=== PATIENT | male | born 1950 | race Caucasian/White ===

== ENCOUNTER → 2023-03-10 | Day surgery (SDC) | payer MEDICARE, BC, OTHER ==
[~2023-03-10] VITALS: Ht 185.4 cm; Wt 109.8 kg
[~2023-03-10] MED LIST: ALBU8.5H INH; ALEV220T22 PO; ASPI81CH33 PO; BSS IRR 500ML/OMIDRIA 4ML IRR BAG (OR ONLY) As Ordered ONE; CEFUROXIME 1MG/0.1ML INTRACAMERAL INJ As Ordered ONE; CYCLOPENTOLATE 1% OPHTH SOLN 2ML BTL OD SCH; GABA-1171 PO; LIDOCAINE 1% SDV 5ML VIAL As Ordered ONE; LOSA100T46 PO; MIDAZOLAM INJ 2MG/2ML VIAL As Ordered ONE; OFLOXACIN 0.3 % (OCUFLOX) OPTH SOL 5ML OD SCH; PHENYLEPHRINE 2.5% OPHTH SOL 2ML OD SCH; PROPARACAINE 0.5% OPHTH SOL 15ML OD ONE; SPIR12.9 INH; SYMB16INH INH; TROPICAMIDE 1% OPHTH SOLN 15ML OD SCH; XARE20TA PO; fentaNYL 100 MCG/2 ML INJECTION As Ordered ONE
[2023-03-10 10:15] VITALS: BP 136/80; TEMP 97.7; O2SAT 94
== END | disposition home or self-care (01) ==
LOC: M SDC 07:50
PROVIDERS: ATTEND Ophthalmology
DX: H25.11 Age-related nuclear cataract, right eye (principal); G47.30 Sleep apnea, unspecified; Z86.73 Personal history of transient ischemic attack (TIA), and cerebral infarction without residual deficits; I10 Essential (primary) hypertension; J44.9 Chronic obstructive pulmonary disease, unspecified; F17.210 Nicotine dependence, cigarettes, uncomplicated; Z88.5 Allergy status to narcotic agent; Z79.899 Other long term (current) drug therapy; Z79.01 Long term (current) use of anticoagulants; Z79.82 Long term (current) use of aspirin; Z79.51 Long term (current) use of inhaled steroids; Z79.1 Long term (current) use of non-steroidal anti-inflammatories (NSAID)
CPT/HCPCS: 66984; J0697; J1097; J2250; J3010; V2632